=== PATIENT | female | born 1970 | race Caucasian/White ===

== ENCOUNTER 2022-05-20 20:21 | Emergency (ER) | payer SELFPAY ==
[2022-05-21] MEDS ORDERED: CEPH500C2 MT (01:08)
== END 2022-05-20 21:48 | disposition left against medical advice (07) ==
LOC: ER 20:21
DX: Z53.21 Procedure and treatment not carried out due to patient leaving prior to being seen by health care provider (principal)

== ENCOUNTER 2022-05-20 22:09 | Emergency (ER) | payer SELFPAY ==
[~2022-05-20] VITALS: Ht 160 cm; Wt 91.3 kg
[2022-05-20 23:23] VITALS: BP 134/73
[2022-05-21 01:06] LABS: CLARITY URINE CLOUDY (CLEAR); COLOR URINE YELLOW (YELLOW); KETONES URINE NEGATIVE (NEGATIVE); LEUKOCYTE ESTERASE URINE 3+ (NEGATIVE); NITRITE URINE NEGATIVE (NEGATIVE); OCCULT BLOOD URINE 2+ (NEGATIVE); PH URINE 5.5 (4.5-8.0); PROTEIN URINE TRACE (NEGATIVE); SPECIFIC GRAVITY URINE 1.013 (1.005-1.030)
[2022-05-21] MEDS ORDERED: CEPH500C2 MT (01:08)
[2022-05-21] MEDS ORDERED: CEPHALEXIN 250MG CAPSULE PO ONE (01:15)
== END 2022-05-21 01:45 | disposition home or self-care (01) ==
LOC: ER 22:09
DX: N39.0 Urinary tract infection, site not specified (principal); J02.9 Acute pharyngitis, unspecified; R05.9 Cough, unspecified; Z20.822 Contact with and (suspected) exposure to COVID-19
CPT/HCPCS: 81003; 87086; 87426; 87804; 99283; C9803